=== PATIENT | female | born 1990 | race Caucasian/White ===

== ENCOUNTER → 2019-12-18 09:39 | Outpatient (CLI) | payer BC | END | disposition home or self-care (01) | LOC: D.US 09:30 → D.RAD 10:00 | PROVIDERS: ATTEND Family Medicine | DX: K30 Functional dyspepsia (principal); E04.1 Nontoxic single thyroid nodule ==

== ENCOUNTER 2020-01-27 05:50 | Day surgery (SDC) | payer BC ==
[~2020-01-27] VITALS: Ht 160 cm; Wt 67.7 kg
[~2020-01-27 05:50] MED LIST: ALBUTEROL SULF8.5 GM INH; CLARITIN 10 MG10 MG PO; SINGULAIR10 MG PO; TRI-SPRINTEC TAB PO
[2020-01-27 06:21] LABS: HEMOGLOBIN 12.5 g/dL (12-16); MCH 31.5 pg (26.0-34.0); MCHC 33.8 g/dL (31.0-37.0); MCV 93.2 fL (80.0-100.0); MEAN PLATELET VOLUME 12.2 fL (7.4-10.4); RBC 3.97 10x6/uL (4.00-5.40); RDW 12.4 % (11.5-14.5); WBC 7.5 10x3/uL (4.8-10.8)
[2020-01-27 06:45] VITALS: BP 115/71; BMI 26.4
[2020-01-27 06:51] LABS: HCG SERUM NEGATIVE (NEGATIVE)
--- NOTE | 2020-01-27 11:19 | NUR ---
SCOPE PATCH BEHIND LT EAR ON ADMIT
--- NOTE | 2020-01-27 11:20 | NUR ---
NAUSEATED @1030 GAVE 12.5MG IV OF PHENERGAN @1132 SCANT GREENISH FLUID RECIEVED GROM PATIENT
--- NOTE | 2020-01-27 11:22 | NUR ---
DR GOSS REDRESSED ALEAH DRAIN TO SECURE SEAL TO DRESSING @7955
[2020-01-27 11:49] VITALS: BP 97/54
--- NOTE | 2020-01-27 11:52 | NUR ---
PT ARRIVES TO ROOM VIA BED ESCORTD BY PHARMACISTS MAKI. PT IS ASLEEP BUT AROUSABLE WITH VERBAL STIMULATION. PT IS AAO X 4 UPON AROUSAL. FAMILY IS AT BEDSIDE. ALEAH DRAIN NOTED TO INCISION SITE TO THROAT. DRESSING IS CDI AND BULB IS COMPRESSED. FREQUENT VITALS ESTABLISHED AND VSS. SEE FLOWSHEET. NO APPARENT S/S OF DISTRESS NOTED AT THIS TIME. BED IS IN THE LOWEST POSITION. CALL LIGHT AND BEDSIDE TABLE WITHIN REACH. SIDE RAILS X 2. PT AND PT FAMILY DENY FURTHER NEEDS AT THIS TIME. WILL CONT TO MONITOR.
--- NOTE | 2020-01-27 12:00 | NUR ---
PT IS SLEEPY BUT AROUSABLE. PT WUICKLY RETURNS TO A RESTING WITH EYES CLOSED STATE. ALL QUESTIONS ANSWERED BY PT MOTHER WHO IS AT BEDSIDE. UNABLE TO COMPLETE COVID PUI AND SUICIDE ASSESSMENT AT THIS TIME. WILL CONT TO ATTEMPT TO COMPLETE ADMISSION TASKS WHEN PT IS MORE ALERT. BED IS IN THE LOWEST POSITION. CALL LIGHT AND BEDSIDE TABLE ARE WITHIN REACH. SIDE RAILS X 2. WILL CONT TO MONITOR.
[2020-01-27 12:04] VITALS: BP 96/59; Ht 160 cm; Wt 67.7 kg
--- NOTE | 2020-01-27 13:08 | HP ---
PATIENT: GHAZALA NAVAS MEDICAL RECORD: [id number] ACCOUNT: [id number] LOCATION:[facility] : 86 ADMISSION DATE: 01/27/20 PCP: ANITA GIBBS MD HISTORY AND PHYSICAL EXAMINATION HISTORY OF PRESENT ILLNESS: Ghazala is 29. She is found to have a 2.8 cm right thyroid nodule, this is a solitary nodule. FNA did not show any evidence of carcinoma. She has a TSH of 1.3. She has been admitted for right thyroid lobectomy, possible total thyroidectomy. PAST MEDICAL HISTORY: Reactive airway disease. PAST SURGICAL HISTORY: Cholecystectomy in 2009, tonsillectomy, adenoidectomy. CURRENT MEDICATIONS: Ortho Tri-Cyclen, Singulair, Zyrtec. ALLERGIES: No known drug allergies. PHYSICAL EXAMINATION: GENERAL: She is healthy-appearing. FACE: Normal, symmetric, no lesions. EYES: Sclerae and conjunctivae are normal. NOSE: No masses, polyps or drainage. ORAL CAVITY, OROPHARYNX: Tongue protrudes in in midline. Pharynx is normal. NECK: She has got obvious mass in the right thyroid about 3 cm in size, clearly visible and palpable, raises on swallowing. CHEST: Clear. CARDIOVASCULAR: Regular rate and rhythm, no murmur. EXTREMITIES: Normal. IMPRESSION: Solitary right thyroid nodule of 2.8 cm. PLAN: Right thyroid lobectomy, possible total. TRANSINT:[id number] Voice Confirmation ID: [id number] DOCUMENT ID: [id number] YOVANNY GOSS MD at 1308 CC: [id number] DICTATION DATE: 01/23/20846 ROCK LATHER: 01/23/20 0907 [facility] [address] [id number]
--- NOTE | 2020-01-27 19:00 | NUR ---
REPORT GIVEN BY LIDIA HARO
[2020-01-27 20:00] VITALS: BP 122/72
--- NOTE | 2020-01-27 20:00 | NUR ---
INTRODUCED MYSELF TO PT. SHE IS DOING GOOD POST OP. NO C/O OF PAIN. EXPLAINED THAT I WOULD BE BACK TO DO HER ASSESSMENT.
--- NOTE | 2020-01-27 20:45 | NUR ---
PT IS DOING WELL. SHE HAS A ALEAH DRAIN IN PLACE. AT THIS TIME ONLY A SMALL AMT IS IN THE BULB. SHE HAS AN IV IN HER LEFT FOREARM WITH NS AT 30 ML/HR. SHE HAS NOT ASKED FOR ANY PAIN MEDS.
--- NOTE | 2020-01-27 21:30 | NUR ---
WATCHING TV. MOM IS STAYING WITH PT.
--- NOTE | 2020-01-27 23:00 | NUR ---
PT IS RESTING WITH HER EYES CLOSED. NO C/O OR NEEDS
[2020-01-28] VITALS: BP 112/73
--- NOTE | 2020-01-28 00:30 | NUR ---
PT RESTING WITH HER EYES CLOSED. MOM ASLEEP.
--- NOTE | 2020-01-28 02:00 | NUR ---
RESTING QUIETLY. STILL HAS NOT ASKED FOR ANY PAIN MEDS.
[2020-01-28 04:00] VITALS: BP 110/72
--- NOTE | 2020-01-28 08:12 | OP ---
PATIENT NAME: GHAZALA NAVAS MEDICAL RECORD: [id number] :86 LOCATION:[facility] ADMISSION DATE: SURGEON: YOUSUF GOSS MD DATE OF OPERATION: 01/27/2020 PREOPERATIVE DIAGNOSIS: Right thyroid nodule. POSTOPERATIVE DIAGNOSIS: Right thyroid nodule. PROCEDURE: Right thyroid lobectomy. SURGEON: Yousuf Goss MD ANESTHESIA: General orotracheal. BLOOD LOSS: Less than 5 mL. SPECIMENS: Right thyroid lobe. FROZEN SECTION DIAGNOSIS: Benign. DRAINS: A single drain through the incision. COMPLICATIONS: None. DISPOSITION: Recovery stable. DESCRIPTION OF PROCEDURE: She was brought to operating room, placed in supine position, sedated and intubated by anesthesia. She was positioned, prepped and draped in usual sterile fashion. Horizontal incision was made in a skin crease between the cricoid and sternal notch. This was taken down through the platysma layer with spatula cautery. Flaps were elevated superiorly and inferiorly and 4 separate 2-0 silk stick ties used in the platysma for retraction sutures. The fascia was divided in the midline, exposing the strap musculature. Strap muscles were divided in the midline as well. This exposed the thyroid isthmus and trachea. The strap muscles on the right side and the fascia over this thyroid were dissected away to the right side, exposing the right thyroid lobe with obvious large right superior nodule and cyst inferiorly. The thyroid was freed up with a tonsil bipolar. It was lifted and moved medially, rotated in the thyroid and the inferior parathyroid was identified and preserved intact. The recurrent laryngeal nerve was identified and preserved, not manipulated. The thyroid laterally was further freed up, moving it medially. Then, the superior pedicle was exposed and was taken down in segments with tonsil bipolar cautery and a 2-0 silk tie. This allowed rotation of the entire gland medially. The superior parathyroid was exposed and preserved intact as well. This exposed Staton ligament. The recurrent laryngeal nerve was not disturbed. The thyroid was rotated medially, dissected off of the trachea, and the isthmus was divided. There was no significant bleeding. The wound was clean. Specimen was sent for path, which returned benign colloid cyst. The wound was irrigated and inspected carefully. A drain was placed through this incision. Her head was flexed slightly. The strap muscles were reapproximated with 4-0 Vicryl. Then, the platysma layer was closed with interrupted 4-0 Vicryl. The skin was closed with running subcuticular 5-0 Prolene. Steri-Strips and Mastisol were used. A nylon drain stitch was used. She was awakened, extubated, and transported to recovery in good condition. No complications. OPERATIVE REPORT [id number] GAHZALA NAVAS NTS:[id number] Voice Confirmation ID: [id number] DOCUMENT ID: [id number] YOUSUF GOSS MD at 0812 CC: [id number] DICTATION DATE: 01/27/20 1023 BUCK SWAMPER: 01/27/20 192 [facility] [address] [place] [address]
[2020-01-28 08:22] VITALS: BP 116/71
[2020-01-28] MEDS ORDERED: HYDROCODON-ACE1 EAC7 PO (09:30)
--- NOTE | 2020-01-28 12:43 | NUR ---
DISCHARGE PAPERS COMPLETE. NO FURTHER QUESTIONS. IV CATH REMOVED. CATH TIP INTACT. BELONGIGNS GATHERED. WAITING ON RIDE TO GET HERE.
[2020-01-28 12:46] VITALS: BP 124/71
--- NOTE | 2020-01-28 13:15 | NUR ---
PATIENT LEFT UNIT VIA WHEELCHAIR TO HOME.
== END 2020-01-28 16:24 | disposition home or self-care (01) ==
LOC: D.OPS 05:50 → D.MS 11:55 → D.OPS 01-28 16:24
PROVIDERS: Anesthesiology; ATTEND Otolaryngology
DX: E04.1 Nontoxic single thyroid nodule (principal)